=== PATIENT | male | born 1985 | race Caucasian/White ===

== ENCOUNTER 2021-12-20 01:59 | Emergency (ER) | payer MEDICAID ==
[~2021-12-20] VITALS: Ht 185.4 cm; Wt 66.0 kg
[2021-12-20 02:10] VITALS: BP 143/87
[2021-12-20 03:49] LABS: BASOPHILS % 0.3 % (0.0-2.0); HEMATOCRIT. 42.6 % (42.0-52.0); HEMOGLOBIN. 14.1 g/dL (14.0-18.0); LYMPHOCYTES % 17.6 % (20.0-50.0); MEAN CORPUSCULAR HEMOGLOBIN 29.1 pg (28.0-32.0); MEAN CORPUSCULAR VOLUME 87.8 fL (80.0-94.0); MEAN PLATELET VOLUME 8.2 fl (7.4-10.4); MONOCYTES % 13.9 % (2.0-8.0); NEUTROPHILS % 64.2 % (40.0-76.0); PLATELET 211 x1000/uL (130-400); RED BLOOD CELL COUNT 4.85 mill/uL (4.7-6.1); RED CELL DISTRIBUTION WIDTH 13.5 % (11.6-14.6)
[2021-12-20 03:52] LABS: CHLORIDE 107 mEq/L (98-107)
[2021-12-20] MEDS ORDERED: TETANUS, DIPHTHERIA, PERTUSSIS VAC/PF 0.5ML (>10YR OLD) IM ONE (08:00)
[2021-12-20] MEDS ORDERED: LIDOCAINE HCL/PF 1% 10 MG/ML 5ML VIAL INFIL ONE (08:00)
[2021-12-20] MEDS ORDERED: HYDROCODONE/ACETAMINOPHEN 5/325MG TABLET PO ONE (08:45)
[2021-12-20] MEDS ORDERED: CEPH500T MT (09:07)
[2021-12-20] MEDS ORDERED: DOXY100C5 MT (09:07)
== END 2021-12-20 08:51 | disposition left against medical advice (07) ==
LOC: ER 01:59
DX: L03.011 Cellulitis of right finger (principal); I48.91 Unspecified atrial fibrillation; I10 Essential (primary) hypertension; Z98.890 Other specified postprocedural states; Z86.59 Personal history of other mental and behavioral disorders
CPT/HCPCS: 10060; 36415; 80048; 85025; 99284; J3490; Z7610